=== PATIENT | female | born 1950 | race Caucasian/White ===

== ENCOUNTER → 2017-03-16 | Outpatient (CLI) | payer OTHER ==
[~2017-03-16] VITALS: Ht 162.6 cm; Wt 66.4 kg
[~2017-03-16] MED LIST: ALIGN4 MG PO; CALCIUM 600 +1 EACH PO; FIBER PO; FISH OIL CONC1 EACH PO; INVanz IV; VITAMIN D2000 UNIT PO
[2017-03-16 10:16] VITALS: BP 151/78
== END | disposition home or self-care (01) ==
LOC: IVINF 09:49
DX: M81.0 Age-related osteoporosis without current pathological fracture (principal)
CPT/HCPCS: 96365; J3489

== ENCOUNTER → 2018-03-22 | Outpatient (CLI) | payer OTHER ==
[~2018-03-22] VITALS: Ht 165.1 cm; Wt 68.6 kg
[2018-03-22 10:00] VITALS: BP 134/73
== END | disposition home or self-care (01) ==
LOC: IVINF 09:49
DX: M81.0 Age-related osteoporosis without current pathological fracture (principal)
CPT/HCPCS: 96365; J3489